=== PATIENT | male | born 1985 | race Caucasian/White ===

== ENCOUNTER 2018-12-07 17:07 | Emergency (ER) | payer MEDICAID ==
[~2018-12-07] VITALS: Ht 177.8 cm; Wt 108.9 kg
[2018-12-07 17:36] VITALS: BP_SYST 159
[2018-12-07 18:01] LABS: BASOPHILS % (AUTO) 0.4 % (0.0-2.0); EOSINOPHILS # (AUTO) 0.1 K/uL (0.0-0.4); EOSINOPHILS % (AUTO) 1.1 % (0.0-4.0); HEMATOCRIT 43.2 % (36-54); HEMOGLOBIN 14.4 g/dL (14.0-18.0); LYMPHOCYTES % (AUTO) 34.2 % (20.5-51.5); MEAN CORPUSCULAR HEMOGLOBIN 31 pg (27-31); MEAN CORPUSCULAR HGB CONC 33 % (32-36); MEAN CORPUSCULAR VOLUME 94 fL (79.0-98.0); MONOCYTES # (AUTO) 0.7 K/uL (0.0-1.0); MONOCYTES % (AUTO) 8.1 % (1.7-9.3); NEUTROPHILS # (AUTO) 4.9 K/uL (1.8-7.7); NEUTROPHILS % (AUTO) 56.2 % (40.0-70.0); PLATELET COUNT (AUTO) 298 K/uL (130-430); RED CELL DISTRIBUTION WIDTH 12.9 % (9.0-15.0); WHITE BLOOD COUNT (AUTO) 8.7 K/uL (4.8-10.8)
[2018-12-07 18:19] LABS: ANION GAP 8 (5-15); CALCIUM 8.8 mg/dL (8.4-11.0); CHLORIDE 93 mmol/L (98-107); CREATININE 1.17 mg/dL (0.55-1.30); POTASSIUM 4.8 mmol/L (3.5-5.1); SODIUM SERUM 125 mmol/L (136-145); UREA NITROGEN, BLOOD 13 mg/dL (8-21)
[2018-12-07 18:20] LABS: INR 0.9 (0.80-1.20); PROTHROMBIN TIME 9.1 SECS (9.5-12.5)
[2018-12-07 18:24] LABS: ALANINE AMINOTRANSFERASE 81 U/L (12-78); ALBUMIN 3.6 g/dL (3.4-4.8); ASPARTATE AMINOTRANSFERASE 61 U/L (10-37); TOTAL BILIRUBIN 0.5 mg/dL (0.0-1.0)
[2018-12-07] MEDS ORDERED: NACL 0.9% 2,000 ML IV ONE (18:30)
[2018-12-07 18:35] LABS: GFR AFRICAN AMERICAN 93 mL/min (>90); GLUCOSE 676 mg/dL (70-99)
[2018-12-07] MEDS ORDERED: PANTOPRAZOLE SODIUM 80 MG in NS 100 ML IV ONE (18:45)
[2018-12-07] MEDS ORDERED: PANTOPRAZOLE SODIUM 40 MG in NS 50 ML IV ONE (18:45)
[2018-12-07 19:00] LABS: BILIRUBIN,URINE NEGATIVE (NEGATIVE); BLOOD, URINE NEGATIVE (NEGATIVE); CLARITY/URINE CLEAR (CLEAR); COLOR,URINE YELLOW (YELLOW); GLUCOSE,URINE 3+ (NEGATIVE); KETONES,URINE 1+ (NEGATIVE); LEUKOCYTE ESTERASE ,URINE NEGATIVE (NEGATIVE); NITRITE, URINE NEGATIVE (NEGATIVE); PROTEIN URINE NEGATIVE (NEGATIVE); UROBILINOGEN,URINE 0.2 (0.2-1.0)
[2018-12-07] MEDS ORDERED: INSULIN REGULAR, HUMAN 10 UNITS/0.1 ML INJ IVP ONE (19:00)
[2018-12-07 22:01] VITALS: BP_SYST 129
== END 2018-12-07 22:02 | disposition short-term general hospital (02) ==
LOC: SED 17:07
DX: I10 Essential (primary) hypertension (principal); E11.9 Type 2 diabetes mellitus without complications
CPT/HCPCS: 36415; 80053; 81003; 82009; 82962; 83036; 84484; 85025; 85610; 85730; 93005; 96361; 96374; 99285; J7030

== ENCOUNTER 2019-03-09 18:55 | Emergency (ER) | payer MEDICAID ==
[~2019-03-09] VITALS: Ht 177.8 cm; Wt 95.3 kg
[2019-03-09 19:18] VITALS: BP_SYST 139
[2019-03-09] MEDS ORDERED: NACL 0.9% 1,000 ML IV ONE (19:45)
[2019-03-09] MEDS ORDERED: INSULIN REGULAR, HUMAN 10 UNITS/0.1 ML INJ IVP ONE (19:45)
[2019-03-09 20:36] LABS: BILIRUBIN,URINE NEGATIVE (NEGATIVE); BLOOD, URINE NEGATIVE (NEGATIVE); CLARITY/URINE CLEAR (CLEAR); COLOR,URINE YELLOW (YELLOW); GLUCOSE,URINE 3+ (NEGATIVE); KETONES,URINE 2+ (NEGATIVE); LEUKOCYTE ESTERASE ,URINE NEGATIVE (NEGATIVE); NITRITE, URINE NEGATIVE (NEGATIVE); PROTEIN URINE NEGATIVE (NEGATIVE); UROBILINOGEN,URINE 0.2 (0.2-1.0)
[2019-03-09 21:37] LABS: BASOPHILS # (AUTO) 0.1 K/uL (0.0-0.2); BASOPHILS % (AUTO) 0.7 % (0.0-2.0); EOSINOPHILS # (AUTO) 0.1 K/uL (0.0-0.4); EOSINOPHILS % (AUTO) 1.1 % (0.0-4.0); HEMATOCRIT 38.9 % (36-54); HEMOGLOBIN 13.5 g/dL (14.0-18.0); LYMPHOCYTES # (AUTO) 3.9 K/uL (1.0-5.5); LYMPHOCYTES % (AUTO) 37.3 % (20.5-51.5); MEAN CORPUSCULAR HEMOGLOBIN 33 pg (27-31); MEAN CORPUSCULAR HGB CONC 35 % (32-36); MEAN CORPUSCULAR VOLUME 94 fL (79.0-98.0); MONOCYTES % (AUTO) 9.3 % (1.7-9.3); NEUTROPHILS # (AUTO) 5.4 K/uL (1.8-7.7); NEUTROPHILS % (AUTO) 51.6 % (40.0-70.0); PLATELET COUNT (AUTO) 284 K/uL (130-430); RED BLOOD CELL COUNT(AUTO) 4.13 MIL/uL (4.2-6.2); RED CELL DISTRIBUTION WIDTH 12.8 % (9.0-15.0); WHITE BLOOD COUNT (AUTO) 10.4 K/uL (4.8-10.8)
[2019-03-09 21:53] LABS: CALCIUM 8.5 mg/dL (8.4-11.0); CREATININE 0.6 mg/dL (0.55-1.30); POTASSIUM 3.7 mmol/L (3.5-5.1)
[2019-03-09 21:58] LABS: ALBUMIN 3.3 g/dL (3.4-4.8); TOTAL BILIRUBIN 0.3 mg/dL (0.0-1.0)
[2019-03-09 22:34] VITALS: BP_SYST 132
== END 2019-03-09 22:32 | disposition home or self-care (01) ==
LOC: SED 18:55
DX: E11.65 Type 2 diabetes mellitus with hyperglycemia (principal); F17.210 Nicotine dependence, cigarettes, uncomplicated; R03.0 Elevated blood-pressure reading, without diagnosis of hypertension
CPT/HCPCS: 36415; 80053; 81003; 82962; 85025; 96361; 96374; 99283; J1815; J7030

== ENCOUNTER 2019-10-03 07:34 | Emergency (ER) | payer MEDICAID ==
[~2019-10-03] VITALS: Ht 177.8 cm; Wt 77.1 kg
[2019-10-03 07:42] VITALS: BP_SYST 139
[2019-10-03] MEDS ORDERED: LIDOCAINE 1% 10 MG/ML, 20 ML MDV INJ ONE (08:00)
[2019-10-03 08:45] VITALS: BP_SYST 137
[2019-10-03] MEDS ORDERED: BACITRACIN 1 GM OINT TP ONE (08:52)
== END 2019-10-03 08:45 | disposition home or self-care (01) ==
LOC: SED 07:34
DX: S61.217A Laceration without foreign body of left little finger without damage to nail, initial encounter (principal); E11.9 Type 2 diabetes mellitus without complications; W25.XXXA Contact with sharp glass, initial encounter; Y93.89 Activity, other specified; Y92.89 Other specified places as the place of occurrence of the external cause; Y99.8 Other external cause status
CPT/HCPCS: 12002; 73140; 99283; J2001

== ENCOUNTER 2021-01-06 01:03 | Emergency (ER) | payer MEDICAID, SELFPAY ==
[~2021-01-06] VITALS: Ht 177.8 cm; Wt 65.8 kg
[2021-01-06 01:29] VITALS: BP_SYST 152
[2021-01-06] MEDS ORDERED: LIDOCAINE 2%, 20 ML MDV INJ ONE (02:45)
[2021-01-06] MEDS ORDERED: HYDR-3917 PO (02:51)
[2021-01-06] MEDS ORDERED: IBUP-1969 PO (02:54)
[2021-01-06] MEDS ORDERED: BACITRACIN 1 GM OINT TP ONE ×2 (05:15→06:26)
[2021-01-06] MEDS ORDERED: LIDOCAINE 2%, 20 ML MDV ONE (05:36)
[2021-01-06 05:37] VITALS: BP_SYST 135
== END 2021-01-06 05:37 | disposition home or self-care (01) ==
LOC: SED 01:03
DX: L60.0 Ingrowing nail (principal); Z79.899 Other long term (current) drug therapy
CPT/HCPCS: 11730; 99284; J2001

== ENCOUNTER 2021-11-10 14:27 | Emergency (ER) | payer MEDICAID ==
[~2021-11-10] VITALS: Ht 177.8 cm; Wt 72.6 kg
[2021-11-10 14:27] VITALS: BP_SYST 124
[~2021-11-10 14:27] MED LIST: HYDR-3917 PO; IBUP-1969 PO
--- NOTE | 2021-11-10 14:30 | NUR ---
BROUGHT BACK TO BED #5 VIA WHEELCHAIR, PLACED IN BED #5 AND TRIAGED. REPORT GIVEN TO TONY
[2021-11-10] MEDS ORDERED: KETOROLAC TROMETHAMINE 60 MG/2 ML VIAL IM ONE (15:00)
--- NOTE | 2021-11-10 15:01 | NUR ---
[facility]
[2021-11-10 15:28] LABS: BASOPHILS % (AUTO) 0.3 % (0.0-2.0); EOSINOPHILS # (AUTO) 0.1 K/uL (0.0-0.4); EOSINOPHILS % (AUTO) 0.7 % (0.0-4.0); HEMATOCRIT 38.4 % (36-54); LYMPHOCYTES # (AUTO) 2.2 K/uL (1.0-5.5); LYMPHOCYTES % (AUTO) 16.6 % (20.5-51.5); MEAN CORPUSCULAR VOLUME 89 fL (79.0-98.0); MONOCYTES % (AUTO) 7.2 % (1.7-9.3); NEUTROPHILS # (AUTO) 10.1 K/uL (1.8-7.7); NEUTROPHILS % (AUTO) 75.2 % (40.0-70.0); PLATELET COUNT (AUTO) 319 K/uL (130-430); RED BLOOD CELL COUNT(AUTO) 4.31 MIL/uL (4.2-6.2); RED CELL DISTRIBUTION WIDTH 13.1 % (9.0-15.0); WHITE BLOOD COUNT (AUTO) 13.5 K/uL (4.8-10.8)
[2021-11-10] MEDS ORDERED: IBUP-1969 PO (16:24)
[2021-11-10] MEDS ORDERED: HYDR-3917 PO (16:24)
[2021-11-10 16:28] LABS: CALCIUM 9.2 mg/dL (8.4-11.0); CREATININE 1.06 mg/dL (0.55-1.30); POTASSIUM 3.9 mmol/L (3.5-5.1)
[2021-11-10 16:33] LABS: ALBUMIN 3.6 g/dL (3.4-4.8); C-REACTIVE PROTEIN QUANT 2.6 mg/dL (0-0.5); TOTAL BILIRUBIN 0.4 mg/dL (0.0-1.0)
[2021-11-10 16:51] VITALS: BP_SYST 122
--- NOTE | 2021-11-10 16:51 | NUR ---
Patient given written and verbal discharge instructions and verbalizes understanding. KARSTEN PATTERSON MD discussed with patient the results and treatment provided. Patient in stable condition. ID arm band removed. Rx of MOTRIN, NORCO given. Patient educated on pain management and to follow up with PMD. Pain Scale 0. Opportunity for questions provided and answered. Medication side effect fact sheet provided.
== END 2021-11-10 16:51 | disposition home or self-care (01) ==
LOC: SED 14:27
DX: N23 Unspecified renal colic (principal); R11.0 Nausea; E11.9 Type 2 diabetes mellitus without complications; Z79.899 Other long term (current) drug therapy
CPT/HCPCS: 99284; 74176; 80053; 82150; 82962; 83690; 85025; 86140; 36415; 76376; 96372; J1885

== ENCOUNTER 2022-06-22 15:14 | Observation (INO) | payer MEDICAID ==
[~2022-06-22] VITALS: Ht 177.8 cm; Wt 72.6 kg
[2022-06-22 15:20] VITALS: BP_SYST 114
[2022-06-22] MEDS ORDERED: NACL 0.9% 1,000 ML IV ONE ×2 (15:30→16:15)
[2022-06-22 15:54] LABS: BASOPHILS # (AUTO) 0.1 K/uL (0.0-0.2); BASOPHILS % (AUTO) 1.2 % (0.0-2.0); EOSINOPHILS # (AUTO) 0.5 K/uL (0.0-0.4); EOSINOPHILS % (AUTO) 4.8 % (0.0-4.0); HEMATOCRIT 39.6 % (36-54); HEMOGLOBIN 13.1 g/dL (14.0-18.0); LYMPHOCYTES # (AUTO) 2.7 K/uL (1.0-5.5); LYMPHOCYTES % (AUTO) 25.6 % (20.5-51.5); MEAN CORPUSCULAR HEMOGLOBIN 30 pg (27-31); MEAN CORPUSCULAR HGB CONC 33 % (32-36); MEAN CORPUSCULAR VOLUME 92 fL (79.0-98.0); MONOCYTES # (AUTO) 0.5 K/uL (0.0-1.0); MONOCYTES % (AUTO) 5.3 % (1.7-9.3); NEUTROPHILS # (AUTO) 6.6 K/uL (1.8-7.7); NEUTROPHILS % (AUTO) 63.1 % (40.0-70.0); PLATELET COUNT (AUTO) 291 K/uL (130-430); RED BLOOD CELL COUNT(AUTO) 4.31 MIL/uL (4.2-6.2); RED CELL DISTRIBUTION WIDTH 12.2 % (9.0-15.0); WHITE BLOOD COUNT (AUTO) 10.4 K/uL (4.8-10.8)
[2022-06-22 16:10] LABS: ACETONE, SERUM NEGATIVE (NEGATIVE)
[2022-06-22 16:11] LABS: ANION GAP 8 (5-15); CALCIUM 8.1 mg/dL (8.4-11.0); CHLORIDE 93 mmol/L (98-107); CREATININE 1.25 mg/dL (0.55-1.30); GFR AFRICAN AMERICAN 85 mL/min (>90); UREA NITROGEN, BLOOD 19 mg/dL (8-21)
[2022-06-22 16:13] LABS: ALANINE AMINOTRANSFERASE 19 U/L (12-78); ALBUMIN 3.4 g/dL (3.4-4.8); ASPARTATE AMINOTRANSFERASE 8 U/L (10-37); TOTAL BILIRUBIN 0.4 mg/dL (0.0-1.0)
[2022-06-22 16:14] LABS: ALCOHOL, BLOOD < 3 mg/dL (<10); GLUCOSE 816 mg/dL (70-99)
[2022-06-22 16:19] LABS: BILIRUBIN,URINE NEGATIVE (NEGATIVE); BLOOD, URINE NEGATIVE (NEGATIVE); CLARITY/URINE CLEAR (CLEAR); COLOR,URINE YELLOW (YELLOW); GLUCOSE,URINE 3+ (NEGATIVE); KETONES,URINE NEGATIVE (NEGATIVE); LEUKOCYTE ESTERASE ,URINE NEGATIVE (NEGATIVE); NITRITE, URINE NEGATIVE (NEGATIVE); PROTEIN URINE NEGATIVE (NEGATIVE); UROBILINOGEN,URINE 0.2 (0.2-1.0)
[2022-06-22 16:29] LABS: BACTERIA,URINE None Seen /HPF (None Seen); MUCUS,URINE None Seen /LPF (None Seen); RBC,URINE 0-3 /HPF (0-3); WBC,URINE 0-3 /HPF (0-3)
[2022-06-22 16:30] LABS: BARBITURATE, URINE NEGATIVE (NEG <=200); BENZODIAZEPINE, URINE NEGATIVE (NEG <=150); CANNABINOID, URINE NEGATIVE (NEG <=50); COCAINE, URINE NEGATIVE (NEG <=150); OPIATE, URINE NEGATIVE (NEG <=100); PHENCYCLIDINE SCREEN,URINE NEGATIVE (NEG <=25); URINE METHADONE NEGATIVE (NEG <=200)
[2022-06-22 16:31] LABS: METHAMPHETAMINES SCREEN,URINE POSITIVE (NEG <=500); UR TRICYCLIC ANTIDEPRESSANTS NEGATIVE (NEG <=300); URINE AMPHETAMINE POSITIVE (NEG <=500); URINE OXYCODONE SCREEN NEGATIVE (NEG <=100); URINE PROPOXYPHENE SCREEN NEGATIVE (NEG <=300)
[2022-06-22] MEDS ORDERED: NACL 0.9% 1,000 ML IV SCH (18:00)
[2022-06-22] MEDS ORDERED: INSULIN REGULAR, HUMAN 100 UNITS/ML, 3 ML VIAL SUBCUT ONE (19:45)
[2022-06-22 20:38] VITALS: BP_SYST 132
== END 2022-06-22 20:29 | disposition left against medical advice (07) ==
LOC: SED 15:14 → SMU 17:40
PROVIDERS: ADMIT Internal Medicine; ATTEND Internal Medicine
DX: E11.00 Type 2 diabetes mellitus with hyperosmolarity without nonketotic hyperglycemic-hyperosmolar coma (NKHHC) (principal); Z20.822 Contact with and (suspected) exposure to COVID-19; E87.1 Hypo-osmolality and hyponatremia; Z79.899 Other long term (current) drug therapy
CPT/HCPCS: 99291; 96360; 96361; 71045; 87426; 80307; 80053; 82009; 85025; 84484; 36415; 93005; 36600; 82803; 96372; 81000; 82962; G0482; J1815; G0378

== ENCOUNTER 2022-12-14 20:46 | Emergency (ER) | payer MEDICAID ==
[~2022-12-14] VITALS: Ht 182.9 cm; Wt 98.9 kg
[2022-12-14 21:01] VITALS: BP_SYST 137; PULSE 121; RESP 20; TEMP 97.3; O2SAT 97
== END 2022-12-14 21:37 | disposition left against medical advice (07) ==
LOC: SED 20:46
DX: L02.811 Cutaneous abscess of head [any part, except face] (principal); Z53.21 Procedure and treatment not carried out due to patient leaving prior to being seen by health care provider
CPT/HCPCS: 99281